=== PATIENT | male | born 1955 | race Caucasian/White ===

== ENCOUNTER 2025-08-27 09:42 | Emergency (ER) | payer MEDICARE ==
[~2025-08-27] VITALS: Ht 177.8 cm; Wt 108.0 kg
[2025-08-27 09:43] VITALS: BP 132/92; PULSE 80; RESP 20; TEMP 97.9
--- NOTE | 2025-08-27 10:06 | NUR ---
RIGHT SPLINT DONE, PT TOLERATED WELL. CAPILLARY REFIL TO RIGHT WRIST LESS THAN 2 SECONDS. SLING PLACED TO RIGHT WRIST
[2025-08-27] MEDS: ORPHENADRINE 60MG/2ML IM ONE (10:11)
--- NOTE | 2025-08-27 10:37 | ERN ---
General Chief Complaint: Hand Problem/Injury Stated Complaint: HAND INJURY Time Seen by MD: 09:44 Source: patient History of Present Illness Initial Comments Patient is a 70-year-old male coming in complaining of right wrist pain. Per patient he injured his right wrist with a an abnormal movement had some congestion revealed with the ultrasound performed at a PCP's. He states that it was drained given some steroids but he states he the pain is increased. Allergies: Coded Allergies: latex (Unverified Allergy, Unknown, 08/27/25) Past Medical History Past Medical History: Hypertension Past Surgical History: Other Surgical History Other: 5 BACK SX, RIGH TKNEE SX, LT HIP AND LT SHOULDER SX ROS Dictation CONSTITUTIONAL: No chills, no fever, no weakness, no diaphoresis, no malaise. HEAD/FACE: No signs of trauma. EENT: No eye pain, no blurred vision, no tearing, no double vision, no ear pain, no ear discharge, no nose pain, no nasal congestion, no throat pain, no throat swelling, no mouth pain. RESPIRATORY: No cough, no orthopnea, no SOB, no stridor, no wheezing. CARDIOVASCULAR: No chest pain, no edema, no palpitations, no syncope. GASTROINTESTINAL/ABDOMINAL: No abdominal pain, no constipation, no diarrhea, no nausea, no vomiting. GENITOURINARY: No abnormal discharge, no dysuria, no frequent urination, no hematuria. No complaints of pain in the genitals. MUSCULOSKELETAL: No back pain, no gout, joint pain, joint swelling, muscle pain, no muscle stiffness, no neck pain. INTEGUMENTARY: No change in color, no change in hair/nails, no dryness, no lesion, no lumps, no rash. NEUROLOGICAL/PSYCH: No anxiety, not depressed, no emotional problem, no headache, no numbness, no pre-existing deficit, no history of seizures, no tremors, no weakness. HEMATOLOGIC/LYMPHATIC: Not anemic, no history of blood clots, no apparent bleeding, no bruising, glands not swollen. All Systems Negative, Except as Noted. Physical Exam Physical Exam Dictation The Results Laboratory and Microbiology Labs Reviewed?: Yes EKG/XRAY/US/CT/MRI Ultrasound Comment Ultrasound rig upper arm- NAD MDM MDM: Differential diagnosis: Wrist sprain, wrist strain, cellulitis, Rationale: Tests considered and ordered secondary to shared decision making include: Previous outside records reviewed: Old ER visits. Risk of complication and/or morbidity or mortality of patient management: None Medications-Per medication reconciliation Need for hospitalization: Patient does not meet criteria for hospitalization. Need for emergency major/minor surgery: No Patient is a 70 year old male coming in complaining of right wrist pain. Ultrasound did not disclose acute findings. Splint and sling were placed. Patient will be discharged in stable condition. ED Course Orders Procedure Category Date Status Time Us Extremity US 08/27/25 Taken Nonvascular Lmtd 09:59 *Nursing CPOE 08/27/25 Transmitted Communication: 10:01 Sling COSMO 08/27/25 In Process 10:01 Orphenadrine Citrate PHA 08/27/25 Complete (Norflex) 10:30 Ketorolac PHA 08/27/25 Complete Tromethamine 30mg/Ml 10:30 Current Medications Medications (Trade) Dose Ordered Sig/Keeley Route PRN Reason Start Time Stop Time Status Last Admin Dose Admin Ketorolac Tromethamine (toRADol) 30 mg ONCE ONCE IM 08/27/25 10:30 08/27/25 10:31 DC 08/27/25 10:12 Orphenadrine Citrate (Norflex) 60 mg ONCE ONCE IM 08/27/25 10:30 08/27/25 10:31 DC 08/27/25 10:11 Vital Signs Date Time Temp Pulse Resp B/P (MAP) Pulse Ox O2 Delivery O2 Flow Rate FiO2 08/27/25 09:43 97.9 80 20 132/92 97 Room Air DX & DISP Disposition: Discharge Departure Impression: Primary Impression: Wrist sprain Condition: Stable Scripts Diclofenac Sodium (Voltaren Arthritis Pain) 1 % Gel..gram. 5 GM TP BID for 7 Days, #1 TUBE Prov: PRINCESS VILLELA MD 08/27/25 Additional Instructions: FOLLOW-UP WITH PRIMARY CARE PROVIDER IN 1 TO 2 DAYS. TAKE MEDICATIONS DIRECTED HERE IN THE EMERGENCY ROOM. OKAY TO CONTINUE HOME MEDICATIONS UNLESS OTHERWISE DISCUSSED DURING YOUR VISIT IN THE EMERGENCY ROOM TODAY. RETURN TO YOUR NEAREST EMERGENCY ROOM IF SYMPTOMS WORSEN OR IF THERE IS NO IMPROVEMENT. CALL 911 IF YOU NEED IMMEDIATE ASSISTANCE. TAKE TYLENOL [id number] NEEDED AND IF NO CONTRAINDICATIONS ARE PRESENT. INCREASE ORAL HYDRATION. A WOUND CULTURE OR URINE CULTURE WAS ORDERED HERE IN THE EMERGENCY ROOM DEPARTMENT PLEASE FOLLOW-UP WITH PRIMARY CARE PROVIDER AND ADVISE THEM TO GET REPORTS FROM OUR FACILITY. IF YOU HAD ANY CURT WRAP/SPLINTS THAT WERE APPLIED HERE, PLEASE DO NOT REMOVE THEM UNTIL YOU SEE YOUR PRIMARY CARE OR SPECIALTY. Referrals: Referrals: MAEVE YIN MD Time of Disposition: 10:40 PRINCESS VILLELA MD Aug 27, 2025 10:37
[2025-08-27] MEDS ORDERED: DICL20GE TP (10:41)
--- NOTE | 2025-08-27 10:55 | HMCIMG ---
EXAM US right upper extremity nonvascular soft tissue ultrasound CLINICAL HISTORY Right wrist inflammation. TECHNIQUE Real-time high-resolution ultrasound examination of the right wrist and periarticular soft tissues was performed with image documentation. COMPARISON None provided. FINDINGS SOFT TISSUES No focal fluid collection is identified to suggest a drainable abscess. There is mild soft tissue thickening and hypoechoic changes surrounding the flexor tendon sheaths at the level of the right wrist, compatible with low-grade tenosynovial reaction; no discrete tendon tear is visualized. The median nerve at the level of the carpal tunnel appears mildly enlarged in caliber for the wrist, without a focal mass lesion. IMPRESSION Mild flexor tenosynovial thickening around the right wrist, compatible with low-grade inflammatory or overuse-related tenosynovitis in the appropriate clinical setting; perez considerations in this age group and context include early idiopathic or activity-related tenosynovitis, inflammatory arthropathy-related synovitis, or less likely low-grade infectious tenosynovitis, and targeted clinical and laboratory correlation for inflammatory markers or rheumatologic disease may be helpful if clinically warranted. Mild enlargement of the median nerve at the carpal tunnel, which can be seen with early or mild carpal tunnel syndrome; correlation with distribution of symptoms and, if clinically warranted, nerve conduction studies is suggested. No sonographic evidence of a drainable abscess or discrete mass lesion about the right wrist; if symptoms progress or remain unexplained, further evaluation with contrast-enhanced MRI of the wrist could be considered to better characterize synovium, tendons, and nerve morphology if clinically warranted. /Mariana
== END 2025-08-27 10:51 | disposition home or self-care (01) ==
LOC: EDH 09:42
DX: S63.501A Unspecified sprain of right wrist, initial encounter (principal); I10 Essential (primary) hypertension; Z91.040 Latex allergy status; X58.XXXA Exposure to other specified factors, initial encounter; Y93.89 Activity, other specified; Y92.89 Other specified places as the place of occurrence of the external cause; Y99.8 Other external cause status
CPT/HCPCS: 99284; 76882; 96372 ×2; 29125; J1885; J2360